=== PATIENT | male | born 1965 | race Two or more races ===

== ENCOUNTER 2023-09-01 20:16 | Inpatient (IN) | payer MEDICAID, OTHER ==
[2023-09-01] VITALS (8 sets, daily range): BP systolic 129–206; BP diastolic 50–125; PULSE 75–101; RESP 18–25; TEMP 97.4; O2SAT 95–99
[~2023-09-01] VITALS: Ht 170.2 cm; Wt 81.1 kg
[2023-09-01] MEDS: NOREPINEPHRINE 8 MG/250ML KIT 250 ML IV SCH
[2023-09-01] MEDS: HEPARIN SODIUM (PORCINE) 5000 UNITS/ML 1ML VIAL IV ONE (20:30)
[2023-09-01] MEDS: PROPOFOL 100 ML IV SCH (20:30)
[2023-09-01] MEDS: PROPOFOL 100 ML IV ONE (20:34)
[2023-09-01] MEDS: fentaNYL Drip 2500mCg/250mlNS 250 ML IV SCH (20:45)
[2023-09-01] MEDS: HEPARIN SODIUM (PORCINE) 5000 UNITS/ML 1ML VIAL ONE ×2 (20:50→21:19)
[2023-09-01 20:59] LABS: Basophils # (auto) 0.1 10 ^3/uL (0-0.2); Basophils % (auto) 0.6 % (0.0-2.0); Eosinophils # (auto) 0.4 10 ^3/uL (0-0.8); Eosinophils % (auto) 1.9 % (0.0-7.0); Hematocrit 48.3 % (41.0-53.0); Hemoglobin 15.9 g/dL (13.5-17.5); Lymphocytes # (auto) 6.9 10 ^3/uL (0.4-5.4); Lymphocytes % (auto) 37.5 % (10.0-50.0); Mean Corpuscular Hemoglobin 31.2 pg (28.0-32.0); Mean Corpuscular Volume 94.7 fL (80.0-100.0); Monocytes # (auto) 1.6 10 ^3/uL (0-1.3); Monocytes % (auto) 8.5 % (0.0-12.0); Neutrophils # (auto) 9.5 10 ^3/uL (1.6-8.6); Neutrophils % (auto) 51.5 % (37.0-80.0); Nucleated Red Blood Cells % 0.1 %; Red Cell Distribution Width 14.5 % (11.8-14.3); White Blood Cell 18.5 10^3/uL (4.4-10.8)
[2023-09-01] MEDS: VERAPAMIL 2.5MG/ML INJ 2ML VIAL IV ONE (21:02)
[2023-09-01] MEDS: MIDAZOLAM HCL 2MG/2ML 2ml VIAL (1mg/ml) ONE (21:02)
[2023-09-01] MEDS: ANGIOMAX 250 MG VIAL IV ONE (21:02)
[2023-09-01] MEDS: fentaNYL CITRATE 100 MCG/2 ML VL ONE (21:02)
[2023-09-01] MEDS: LIDOCAINE 2%HCL (LOCAL ANESTH.) INJ 20ML MDV ONE (21:02)
[2023-09-01] MEDS: SODIUM CHL 0.9% 50 ML ONE (21:03)
[2023-09-01] MEDS: IODIXANOL 320MG/ML 100ML BTL IV ONE (21:03)
[2023-09-01] MEDS: HEPARIN IN NS 1000Units/500mL 1,500 ML ONE (21:03)
[2023-09-01] MEDS: fentaNYL Drip 2500mCg/250mlNS 250 ML IV ONE (21:06)
[2023-09-01] MEDS: ROCURONIUM 10MG/ML 10ML VIAL IV ONE ×2 (21:08→21:09)
[2023-09-01 21:14] LABS: Chloride 109 mmol/L (98-107); Potassium 3.7 mmol/L (3.5-5.1); Sodium 140 mmol/L (136-145)
[2023-09-01 21:15] LABS: Anion Gap 16 (5-15); Calcium 9.1 mg/dL (8.7-10.4); Carbon Dioxide 15 mmol/L (20-30)
[2023-09-01] MEDS: METOPROLOL TARTRATE 1MG/1ML-5ML VIAL IV ONE (21:17)
[2023-09-01 21:20] LABS: BUN/Creatinine Ratio 18.3 (10.0-20.0); Blood Urea Nitrogen 19 mg/dL (9-23); Glucose 164 mg/dL (74-106)
[2023-09-01 21:20] LABS: Amphetamine Screen, Urine Pos (NEGATIVE); Barbiturate Scree,Urine Neg (NEGATIVE); Benzodiazephine Screen, Urine Neg (NEGATIVE); Cannabinoid Screen, Urine Neg (NEGATIVE); Cocaine Screen, Urine Neg (NEGATIVE); Opiate Scree,Urine Neg (NEGATIVE); Phencyclidine Screen, Urine Neg (NEGATIVE)
[2023-09-01 21:24] LABS: Partial Thromboplastin Time 22.2 SEC (24.5-34.5); Prothrombin Time 10.6 sec (9.3-11.8)
[2023-09-01] MEDS: EPINEPHrine HCL 1 MG/10 ML SYRG ONE (21:36)
[2023-09-01] MEDS: ATROPINE SULF 1 MG/10ml SYR ONE (21:36)
[2023-09-01] MEDS: DOPamine 1600MCG/ML D5W 250 ML IV ONE (21:59)
[2023-09-01] MEDS: EPINEPHrine HCL 1 MG/1 ML AMP ONE (22:07)
[2023-09-01] MEDS: NOREPINEPHRINE 8 MG/250ML KIT 250 ML IV ONE (22:08)
[2023-09-01] MEDS: SODIUM BICARB 8.4% 50Meq/50ml SYR Vial IV ONE (22:16)
[2023-09-01] MEDS: CLOPIDOGREL BISULFATE 75 MG TAB ONE ×2 (22:24→22:25)
[2023-09-01] MEDS: ASPirin 325 MG TAB ONE (22:28)
[2023-09-01 22:41] LABS: Base Excess -2.8 mmol/L (-2.0-2.0)
[2023-09-01] MEDS: VANCOMYCIN 1GM/200ML 200 ML IV ONE (22:41)
[2023-09-01 22:44] LABS: Base Excess -4.9 mmol/L (-2.0-2.0)
[2023-09-01] MEDS ORDERED: MORPHINE SULFATE INJ 2 MG/ml SYRG IV PRN (23:00)
[2023-09-01] MEDS ORDERED: NITROGLYCERIN 0.4 MG SL TAB SL PRN (23:00)
[2023-09-01] MEDS: MIDAZOLAM DRIP 50 mg/50mL 50 ML IV SCH (23:30)
[2023-09-02] VITALS (106 sets, daily range): BP systolic 87–170; BP diastolic 39–88; PULSE 67–93; RESP 8–39; TEMP 96.9–101.7; O2SAT 92–100
[2023-09-02] MEDS: DOPamine 1600MCG/ML D5W 250 ML IV SCH ×2 (02:11→10:00)
[2023-09-02] MEDS: CLOPIDOGREL BISULFATE 75 MG TAB PO ONE (10:00)
[2023-09-02] MEDS ORDERED: NICOTINE 14 MG/24HR TOPICAL PATCH TD SCH (10:00)
[2023-09-02] MEDS: ASPirin 81 mg TAB PO ONE (10:00)
[2023-09-02] MEDS: CLOPIDOGREL BISULFATE 75 MG TAB PO SCH (10:58)
[2023-09-02] MEDS: cefTRIAXone 1GM/50ML D5W 50 ML IV ONE (10:58)
[2023-09-02] MEDS: ASPirin 81 mg TAB PO SCH (10:58)
[2023-09-02 11:00] LABS: Basophils # (auto) 0.1 10 ^3/uL (0-0.2); Basophils % (auto) 0.4 % (0.0-2.0); Eosinophils # (auto) 0.2 10 ^3/uL (0-0.8); Eosinophils % (auto) 1.4 % (0.0-7.0); Hematocrit 48.2 % (41.0-53.0); Hemoglobin 16.3 g/dL (13.5-17.5); Lymphocytes # (auto) 2.2 10 ^3/uL (0.4-5.4); Mean Corpuscular Hemoglobin 31.5 pg (28.0-32.0); Mean Corpuscular Hgb Conc. 33.9 g/dL (32.0-36.0); Mean Corpuscular Volume 92.9 fL (80.0-100.0); Monocytes # (auto) 1.9 10 ^3/uL (0-1.3); Neutrophils % (auto) 70.2 % (37.0-80.0); Red Blood Cells 5.19 10^6/uL (4.5-5.90); White Blood Cell 14.3 10^3/uL (4.4-10.8)
[2023-09-02 11:15] LABS: Alanine Aminotransferase 132 U/L (7-40); Albumin 3.8 g/dL (3.2-4.8); Alkaline Phosphatase 165 U/L (46-116); Anion Gap 7 (5-15); Aspartate Aminotransferase 525 U/L (13-40); BUN/Creatinine Ratio 21.8 (10.0-20.0); Blood Urea Nitrogen 24 mg/dL (9-23); Calcium 8.7 mg/dL (8.5-10.1); Carbon Dioxide 25 mmol/L (20-30); Chloride 108 mmol/L (98-107); Cholesterol 164 mg/dL (< 200); Glucose 151 mg/dL (74-106); LDL Cholesterol 109 mg/dL (< 100); Potassium 3.5 mmol/L (3.5-5.1); Sodium 140 mmol/L (136-145); Triglycerides 207 mg/dL (< 150)
[2023-09-02 11:16] LABS: Bilirubin, Total 1.1 mg/dL (0.2-1.0); HDL Cholesterol 36 mg/dL (40-59); Total Protein 5.9 g/dL (5.7-8.2)
[2023-09-02 11:27] LABS: Urine Bacteria None Seen /hpf (None Seen)
[2023-09-02 11:44] LABS: Urine Blood 1+ /uL (Negative); Urine Clarity Clear (Clear); Urine Color Yellow (Yellow); Urine Mucus FEW (None Seen); Urine Protein, UAD 1+ (Negative); Urine Urobilinogen Normal (Negative); Urine WBC 2 /hpf (0 - 3); Urine pH 5.5 (5.0-9.0)
[2023-09-02 11:51] LABS: Urine Specific Gravity 1.035 (1.001-1.035)
[2023-09-02] MEDS: ENOXAPARIN SOD 40 MG/0.4 ML SYRINGE SC SCH (12:39)
[2023-09-02] MEDS: ACETAMINOPHEN 650 mg PER 20.3 mL UD PO ONE (12:40)
[2023-09-02 13:27] LABS: Lactic Acid w/Reflex 2.1 mmol/L (0.4-2.0)
[2023-09-02] MEDS ORDERED: VANCOMYCIN PER PHARMACY 0 MG IV SCH (16:00)
[2023-09-02] MEDS: VANCOMYCIN 1GM/200ML 200 ML IV SCH (17:41)
[2023-09-02] MEDS: PIPERACILLIN-TAZOB 3.375GM 100 ML IV ONE (17:43)
[2023-09-02] MEDS ORDERED: PIPERACILLIN-TAZOB 3.375GM 100 ML IV SCH (18:00)
[2023-09-02] MEDS: ACETAMINOPHEN 650 mg PER 20.3 mL UD PO PRN (18:24)
[2023-09-02] MEDS: ATORVASTATIN 20 MG TAB PO SCH (21:22)
[2023-09-03] VITALS (107 sets, daily range): BP systolic 88–175; BP diastolic 47–110; PULSE 64–104; RESP 9–42; TEMP 100.2–101.1; O2SAT 96–100
[2023-09-03] MEDS: PIPERACILLIN-TAZOB 3.375GM 100 ML IV SCH (01:55)
[2023-09-03 04:04] LABS: Basophils # (auto) 0.1 10 ^3/uL (0-0.2); Basophils % (auto) 0.9 % (0.0-2.0); Eosinophils # (auto) 0.1 10 ^3/uL (0-0.8); Hematocrit 41.4 % (41.0-53.0); Hemoglobin 14.1 g/dL (13.5-17.5); Mean Corpuscular Hemoglobin 31.7 pg (28.0-32.0); Mean Corpuscular Hgb Conc. 34.1 g/dL (32.0-36.0); Monocytes # (auto) 1.1 10 ^3/uL (0-1.3); Monocytes % (auto) 9.1 % (0.0-12.0); Neutrophils # (auto) 8.5 10 ^3/uL (1.6-8.6); Red Blood Cells 4.46 10^6/uL (4.5-5.90); White Blood Cell 11.8 10^3/uL (4.4-10.8)
[2023-09-03 04:21] LABS: Alanine Aminotransferase 109 U/L (7-40); Albumin 3.3 g/dL (3.2-4.8); Alkaline Phosphatase 136 U/L (46-116); Anion Gap 6 (5-15); Aspartate Aminotransferase 377 U/L (13-40); BUN/Creatinine Ratio 22.1 (10.0-20.0); Bilirubin, Total 1.5 mg/dL (0.2-1.0); Blood Urea Nitrogen 19 mg/dL (9-23); Calcium 8.2 mg/dL (8.7-10.4); Carbon Dioxide 26 mmol/L (20-30); Chloride 106 mmol/L (98-107); Glucose 129 mg/dL (74-106); Magnesium 1.8 mg/dL (1.6-2.6); Potassium 3.7 mmol/L (3.5-5.1); Sodium 138 mmol/L (136-145); Total Protein 5.7 g/dL (5.7-8.2)
[2023-09-03 06:50] LABS: Base Excess -0.2 mmol/L (-2.0-2.0)
[2023-09-03] MEDS ORDERED: cefTRIAXone 1GM/50ML D5W 50 ML IV SCH (09:00)
[2023-09-03] MEDS: POTASSIUM CHL 20MEQ/100ML 100 ML IV ONE (10:01)
[2023-09-03] MEDS: MAGNESIUM SULFATE 1GM/100ML 100 ML IV ONE (10:01)
[2023-09-03] MEDS: FUROSEMIDE 20 MG/2 ML VIAL IV ONE (21:54)
[2023-09-04] VITALS (82 sets, daily range): BP systolic 79–175; BP diastolic 32–106; PULSE 53–101; RESP 8–32; TEMP 97.4–100.8; O2SAT 86–100
[2023-09-04 03:34] LABS: Basophils # (auto) 0 10 ^3/uL (0-0.2); Basophils % (auto) 0.4 % (0.0-2.0); Eosinophils # (auto) 0 10 ^3/uL (0-0.8); Eosinophils % (auto) 0.3 % (0.0-7.0); Hematocrit 38.4 % (41.0-53.0); Hemoglobin 13.2 g/dL (13.5-17.5); Lymphocytes % (auto) 8.1 % (10.0-50.0); Mean Corpuscular Hemoglobin 32.3 pg (28.0-32.0); Mean Corpuscular Hgb Conc. 34.5 g/dL (32.0-36.0); Mean Corpuscular Volume 93.6 fL (80.0-100.0); Monocytes % (auto) 8.2 % (0.0-12.0); Neutrophils # (auto) 10.5 10 ^3/uL (1.6-8.6); White Blood Cell 12.7 10^3/uL (4.4-10.8)
[2023-09-04 03:53] LABS: Alanine Aminotransferase 83 U/L (7-40); Albumin 3.5 g/dL (3.2-4.8); Alkaline Phosphatase 147 U/L (46-116); Anion Gap 5 (5-15); Aspartate Aminotransferase 229 U/L (13-40); BUN/Creatinine Ratio 18.4 (10.0-20.0); Blood Urea Nitrogen 19 mg/dL (9-23); Calcium 8.5 mg/dL (8.7-10.4); Carbon Dioxide 26 mmol/L (20-30); Chloride 105 mmol/L (98-107); Glucose 120 mg/dL (74-106); Potassium 3.8 mmol/L (3.5-5.1); Sodium 136 mmol/L (136-145)
[2023-09-04 03:54] LABS: Bilirubin, Total 1.2 mg/dL (0.2-1.0)
[2023-09-04 07:02] LABS: Base Excess -2.1 mmol/L (-2.0-2.0)
[2023-09-04] MEDS: FUROSEMIDE 20 MG/2 ML VIAL IV SCH (09:16)
[2023-09-04] MEDS: SPIRONOLACTONE 25 MG TAB PO SCH (10:00)
[2023-09-04] MEDS ORDERED: SACUBITRIL-VALSARTAN 24mg/26mg TAB PO SCH (10:00)
[2023-09-04] MEDS ORDERED: CARVEDILOL 3.125 MG TAB PO SCH (10:00)
[2023-09-04] MEDS: EMPAGLIFLOZIN 10 MG TAB PO SCH (10:00)
[2023-09-04 10:21] LABS: Base Excess -4.3 mmol/L (-2.0-2.0)
[2023-09-04] MEDS: FUROSEMIDE 20 MG/2 ML VIAL IV ONE (10:44)
[2023-09-04] MEDS: LORazepam 2MG/ML-1ML VIAL IV PRN ×2 (16:07→18:30)
[2023-09-04] MEDS: LORazepam 2MG/ML-1ML VIAL IM ONE (16:55)
[2023-09-04] MEDS ORDERED: LORazepam 2MG/ML-1ML VIAL IV PRN (18:00)
[2023-09-05] VITALS (30 sets, daily range): BP systolic 125–183; BP diastolic 61–101; PULSE 77–105; RESP 12–31; TEMP 98.2–100.6; O2SAT 62–100
[2023-09-05 04:36] LABS: Basophils # (auto) 0 10 ^3/uL (0-0.2); Basophils % (auto) 0.4 % (0.0-2.0); Eosinophils # (auto) 0.1 10 ^3/uL (0-0.8); Eosinophils % (auto) 0.4 % (0.0-7.0); Hematocrit 36.2 % (41.0-53.0); Hemoglobin 12.2 g/dL (13.5-17.5); Lymphocytes # (auto) 1.5 10 ^3/uL (0.4-5.4); Mean Corpuscular Hemoglobin 31.7 pg (28.0-32.0); Mean Corpuscular Hgb Conc. 33.7 g/dL (32.0-36.0); Mean Corpuscular Volume 94.2 fL (80.0-100.0); Monocytes # (auto) 1.3 10 ^3/uL (0-1.3); Monocytes % (auto) 9.9 % (0.0-12.0); Neutrophils # (auto) 10.3 10 ^3/uL (1.6-8.6); Neutrophils % (auto) 78.3 % (37.0-80.0); Red Blood Cells 3.85 10^6/uL (4.5-5.90); Red Cell Distribution Width 13.8 % (11.8-14.3); White Blood Cell 13.2 10^3/uL (4.4-10.8)
[2023-09-05 04:50] LABS: Alanine Aminotransferase 71 U/L (7-40); Albumin 3.7 g/dL (3.2-4.8); Alkaline Phosphatase 156 U/L (46-116); Anion Gap 11 (5-15); Aspartate Aminotransferase 150 U/L (13-40); BUN/Creatinine Ratio 15.9 (10.0-20.0); Bilirubin, Total 1.4 mg/dL (0.2-1.0); Blood Urea Nitrogen 40 mg/dL (9-23); Calcium 8.8 mg/dL (8.7-10.4); Carbon Dioxide 21 mmol/L (20-30); Chloride 107 mmol/L (98-107); Glucose 103 mg/dL (74-106); Magnesium 2.2 mg/dL (1.6-2.6); Potassium 3.5 mmol/L (3.5-5.1); Sodium 139 mmol/L (136-145); Total Protein 6.4 g/dL (5.7-8.2)
[2023-09-05] MEDS: HALOPERIDOL LACTATE 5 MG/ML INJ VIAL IM ONE ×2 (08:47→13:10)
[2023-09-05] MEDS: CLOPIDOGREL BISULFATE 75 MG TAB PO ONE (10:19)
[2023-09-05] MEDS: EMPAGLIFLOZIN 10 MG TAB PO ONE (10:19)
[2023-09-05] MEDS ORDERED: HALOPERIDOL 1 MG TAB PO PRN (11:15)
[2023-09-05] MEDS: HALOPERIDOL LACTATE 5 MG/ML INJ VIAL ONE (13:09)
[2023-09-05] MEDS ORDERED: THIAMINE 100mg/ml INJ (200mg/2ml VIAL) IV ONE (14:15)
[2023-09-05] MEDS: SODIUM CHLORIDE 0.9% 1,000 ML IV SCH (14:26)
[2023-09-05] MEDS: FOLIC ACID 1 MG, THIAMINE INJ 100 MG in D5W 5% 50 ML INJ ONE (17:01)
[2023-09-05] MEDS: hydrALAZINE HCL 20 MG/ML VL IV PRN (18:18)
[2023-09-06] VITALS (23 sets, daily range): BP systolic 132–178; BP diastolic 78–99; PULSE 73–85; RESP 18–28; TEMP 98.5–100.5; O2SAT 94–99
[2023-09-06 06:03] LABS: Basophils # (auto) 0.1 10 ^3/uL (0-0.2); Basophils % (auto) 0.7 % (0.0-2.0); Eosinophils # (auto) 0.1 10 ^3/uL (0-0.8); Eosinophils % (auto) 0.8 % (0.0-7.0); Hematocrit 41.5 % (41.0-53.0); Hemoglobin 14.2 g/dL (13.5-17.5); Lymphocytes # (auto) 1.3 10 ^3/uL (0.4-5.4); Lymphocytes % (auto) 13.5 % (10.0-50.0); Mean Corpuscular Hemoglobin 31.8 pg (28.0-32.0); Mean Corpuscular Hgb Conc. 34.2 g/dL (32.0-36.0); Monocytes # (auto) 0.8 10 ^3/uL (0-1.3); Monocytes % (auto) 8.1 % (0.0-12.0); Neutrophils # (auto) 7.2 10 ^3/uL (1.6-8.6); Neutrophils % (auto) 76.9 % (37.0-80.0); Red Blood Cells 4.47 10^6/uL (4.5-5.90); Red Cell Distribution Width 13.6 % (11.8-14.3); White Blood Cell 9.4 10^3/uL (4.4-10.8)
[2023-09-06 06:26] LABS: Alanine Aminotransferase 68 U/L (7-40); Alkaline Phosphatase 234 U/L (46-116); Anion Gap 13 (5-15); Aspartate Aminotransferase 115 U/L (13-40); BUN/Creatinine Ratio 18.4 (10.0-20.0); Blood Urea Nitrogen 36 mg/dL (9-23); Calcium 9.3 mg/dL (8.5-10.1); Carbon Dioxide 23 mmol/L (20-30); Chloride 113 mmol/L (98-107); Glucose 98 mg/dL (74-106); Potassium 2.9 mmol/L (3.5-5.1)
[2023-09-06 06:27] LABS: Total Protein 6.8 g/dL (5.7-8.2)
[2023-09-06 06:29] LABS: Sodium 149 mmol/L (136-145)
[2023-09-06 08:24] LABS: Urine Bacteria FEW /hpf (None Seen); Urine Blood 3+ /uL (Negative); Urine Clarity Turbid (Clear); Urine Color Yellow (Yellow); Urine Mucus FEW (None Seen); Urine Protein, UAD 3+ (Negative); Urine Specific Gravity 1.014 (1.001-1.035); Urine Urobilinogen Normal (Negative); Urine WBC 19 /hpf (0 - 3)
[2023-09-06] MEDS: POTASSIUM EFFERVESENT TAB 25 MEQ PO ONE (09:42)
[2023-09-06] MEDS: D5W/SOD CHL 0.45% 1,000 ML IV SCH ×2 (09:42→21:15)
[2023-09-06] MEDS: POTASSIUM CHL 20MEQ/100ML 100 ML IV SCH (09:43)
[2023-09-06] MEDS: EMPAGLIFLOZIN 10 MG TAB PO SCH (09:45)
[2023-09-06] MEDS: ENOXAPARIN SOD 40 MG/0.4 ML SYRINGE SC SCH (09:45)
[2023-09-06] MEDS: ASPirin 81 mg TAB PO SCH (09:45)
[2023-09-06] MEDS: CLOPIDOGREL BISULFATE 75 MG TAB PO SCH (09:47)
[2023-09-06] MEDS: FOLIC ACID 1 MG, THIAMINE INJ 100 MG in D5W 5% 50 ML INJ SCH (09:48)
[2023-09-06] MEDS ORDERED: THIAMINE 100mg/ml INJ (200mg/2ml VIAL) IV SCH (10:00)
[2023-09-06] MEDS: cefTRIAXone 1GM/50ML D5W 50 ML IV ONE (11:15)
[2023-09-06] MEDS ORDERED: CLINIMIX PER PHARMACY 0 ML IV SCH (19:45)
[2023-09-06] MEDS: AMINO ACID INFUSION IN D10W 1,000 ML IV ONE (21:15)
[2023-09-06] MEDS: CARVEDILOL 3.125 MG TAB PO SCH (22:15)
[2023-09-07] VITALS (8 sets, daily range): BP systolic 128–158; BP diastolic 86–101; PULSE 62–109; RESP 0–22; TEMP 97.5–99.2; O2SAT 90–98
[2023-09-07 06:05] LABS: Basophils # (auto) 0.1 10 ^3/uL (0-0.2); Basophils % (auto) 0.7 % (0.0-2.0); Eosinophils # (auto) 0.2 10 ^3/uL (0-0.8); Eosinophils % (auto) 1.8 % (0.0-7.0); Hematocrit 42.2 % (41.0-53.0); Hemoglobin 14.8 g/dL (13.5-17.5); Lymphocytes # (auto) 1.6 10 ^3/uL (0.4-5.4); Lymphocytes % (auto) 16.4 % (10.0-50.0); Mean Corpuscular Hemoglobin 32.3 pg (28.0-32.0); Mean Corpuscular Volume 92.2 fL (80.0-100.0); Monocytes # (auto) 1.1 10 ^3/uL (0-1.3); Monocytes % (auto) 10.6 % (0.0-12.0); Neutrophils % (auto) 70.5 % (37.0-80.0); Red Blood Cells 4.57 10^6/uL (4.5-5.90); Red Cell Distribution Width 13.5 % (11.8-14.3)
[2023-09-07] MEDS ORDERED: ONDANSETRON HCL 4 MG/2 ML VIAL IV PRN (06:15)
[2023-09-07 06:27] LABS: Alanine Aminotransferase 57 U/L (7-40); Alkaline Phosphatase 207 U/L (46-116); Anion Gap 10 (5-15); BUN/Creatinine Ratio 24.2 (10.0-20.0); Blood Urea Nitrogen 30 mg/dL (9-23); Calcium 8.9 mg/dL (8.5-10.1); Carbon Dioxide 25 mmol/L (20-30); Chloride 115 mmol/L (98-107); Glucose 129 mg/dL (74-106); Magnesium 2.3 mg/dL (1.6-2.6); Potassium 3.1 mmol/L (3.5-5.1); Sodium 150 mmol/L (136-145); Triglycerides 232 mg/dL (< 150)
[2023-09-07 06:28] LABS: Albumin 3.9 g/dL (3.2-4.8); Aspartate Aminotransferase 71 U/L (13-40); Bilirubin, Total 1.1 mg/dL (0.2-1.0); Phosphorus 2.7 mg/dL (2.4-5.1); Total Protein 6.6 g/dL (5.7-8.2)
[2023-09-07] MEDS: HALOPERIDOL LACTATE 5 MG/ML INJ VIAL IV PRN (07:02)
[2023-09-07] MEDS: InsuLIN REG 1unit/0.01ml Soln (100units/ml) SC SCH (12:00)
[2023-09-07] MEDS ORDERED: DEXTROSE (50%) 50ML SYRG IV SCH (12:00)
[2023-09-07] MEDS: ACCU-CHEK COMFORT CURVE STRIP VI SCH (12:00)
[2023-09-07] MEDS: cefTRIAXone 1GM/50ML D5W 50 ML IV SCH (12:47)
[2023-09-07] MEDS: POTASSIUM PHOSPHATE 44 MEQ in D5W 5% 250 ML IV ONE (18:41)
[2023-09-07] MEDS: AMINO ACID INFUSION IN D10W 1,000 ML IV SCH (20:49)
[2023-09-07] MEDS: SACUBITRIL-VALSARTAN 24mg/26mg TAB PO SCH (21:17)
[2023-09-08] VITALS (8 sets, daily range): BP systolic 114–159; BP diastolic 86–103; PULSE 58–80; RESP 0–20; TEMP 98–98.8; O2SAT 92–100
[2023-09-08 06:07] LABS: Basophils # (auto) 0.1 10 ^3/uL (0-0.2); Basophils % (auto) 0.7 % (0.0-2.0); Eosinophils # (auto) 0.4 10 ^3/uL (0-0.8); Eosinophils % (auto) 3.2 % (0.0-7.0); Hematocrit 44.4 % (41.0-53.0); Hemoglobin 15.2 g/dL (13.5-17.5); Lymphocytes # (auto) 2.9 10 ^3/uL (0.4-5.4); Lymphocytes % (auto) 21.5 % (10.0-50.0); Mean Corpuscular Hgb Conc. 34.2 g/dL (32.0-36.0); Mean Corpuscular Volume 90.6 fL (80.0-100.0); Monocytes # (auto) 1.3 10 ^3/uL (0-1.3); Monocytes % (auto) 9.5 % (0.0-12.0); Neutrophils # (auto) 8.8 10 ^3/uL (1.6-8.6); Neutrophils % (auto) 65.1 % (37.0-80.0); Nucleated Red Blood Cells % 0.1 %; Red Cell Distribution Width 13.4 % (11.8-14.3); White Blood Cell 13.6 10^3/uL (4.4-10.8)
[2023-09-08 06:15] LABS: Alanine Aminotransferase 59 U/L (7-40); Albumin 3.5 g/dL (3.2-4.8); Alkaline Phosphatase 171 U/L (46-116); Anion Gap 5 (5-15); Aspartate Aminotransferase 66 U/L (13-40); BUN/Creatinine Ratio 25.3 (10.0-20.0); Blood Urea Nitrogen 24 mg/dL (9-23); Calcium 8.8 mg/dL (8.7-10.4); Carbon Dioxide 23 mmol/L (20-30); Chloride 110 mmol/L (98-107); Glucose 119 mg/dL (74-106); Magnesium 1.7 mg/dL (1.6-2.6); Potassium 3.8 mmol/L (3.5-5.1); Sodium 138 mmol/L (136-145)
[2023-09-08 06:16] LABS: Bilirubin, Total 0.6 mg/dL (0.2-1.0); Phosphorus 4.7 mg/dL (2.4-5.1); Total Protein 6.2 g/dL (5.7-8.2)
[2023-09-08] MEDS: SPIRONOLACTONE 25 MG TAB PO SCH (09:45)
[2023-09-09 01:00] VITALS: BP 115/73; PULSE 70; RESP 20; TEMP 98.7; O2SAT 95
[2023-09-09 05:00] VITALS: BP 120/75; PULSE 69; RESP 20; TEMP 98.3; O2SAT 97
[2023-09-09 06:36] LABS: Potassium 3.8 mmol/L (3.5-5.1)
[2023-09-09 06:38] LABS: Basophils # (auto) 0.1 10 ^3/uL (0-0.2); Eosinophils # (auto) 0.4 10 ^3/uL (0-0.8); Eosinophils % (auto) 3.5 % (0.0-7.0); Hematocrit 44.9 % (41.0-53.0); Hemoglobin 15.7 g/dL (13.5-17.5); Lymphocytes % (auto) 23.1 % (10.0-50.0); Mean Corpuscular Hemoglobin 31.5 pg (28.0-32.0); Mean Corpuscular Hgb Conc. 35.1 g/dL (32.0-36.0); Monocytes # (auto) 1.2 10 ^3/uL (0-1.3); Monocytes % (auto) 9.4 % (0.0-12.0); Neutrophils # (auto) 8.2 10 ^3/uL (1.6-8.6); Nucleated Red Blood Cells % 0.1 %; Red Blood Cells 4.99 10^6/uL (4.5-5.90); Red Cell Distribution Width 13.2 % (11.8-14.3)
[2023-09-09 06:42] LABS: BUN/Creatinine Ratio 21.7 (10.0-20.0); Magnesium 1.8 mg/dL (1.6-2.6)
[2023-09-09 06:43] LABS: Albumin 3.6 g/dL (3.2-4.8)
[2023-09-09 06:44] LABS: Phosphorus 3.8 mg/dL (2.4-5.1)
== END 2023-09-09 08:19 | disposition left against medical advice (07) | DRG 174 ==
LOC: EDBD 20:16 → ER 20:16 → ICU WEST 23:45 → DOU IN ICU 09-05 10:33 → TELE-EAST 09-06 11:31
PROVIDERS: ADMIT Internal Medicine Pulmonary Disease; ATTEND Internal Medicine Pulmonary Disease
PROC: 027035Z Dilation of Coronary Artery, One Artery with Two Drug-eluting Intraluminal Devices, Percutaneous Approach (ICD-10-PCS; principal; 2023-09-01)
PROC: 4A023N7 Measurement of Cardiac Sampling and Pressure, Left Heart, Percutaneous Approach (ICD-10-PCS; 2023-09-01)
PROC: B2111ZZ Fluoroscopy of Multiple Coronary Arteries using Low Osmolar Contrast (ICD-10-PCS; 2023-09-01)
PROC: B2151ZZ Fluoroscopy of Left Heart using Low Osmolar Contrast (ICD-10-PCS; 2023-09-01)
PROC: 0BH17EZ Insertion of Endotracheal Airway into Trachea, Via Natural or Artificial Opening (ICD-10-PCS; 2023-09-01)
PROC: 5A1945Z Respiratory Ventilation, 24-96 Consecutive Hours (ICD-10-PCS; 2023-09-01)
PROC: 06HY33Z Insertion of Infusion Device into Lower Vein, Percutaneous Approach (ICD-10-PCS; 2023-09-01)
PROC: 05HB33Z Insertion of Infusion Device into Right Basilic Vein, Percutaneous Approach (ICD-10-PCS; 2023-09-04)
PROC: B54MZZA Ultrasonography of Right Upper Extremity Veins, Guidance (ICD-10-PCS; 2023-09-04)
PROC: 0BP1XDZ Removal of Intraluminal Device from Trachea, External Approach (ICD-10-PCS; 2023-09-05)
DX: I21.19 ST elevation (STEMI) myocardial infarction involving other coronary artery of inferior wall (principal); I46.9 Cardiac arrest, cause unspecified; R57.0 Cardiogenic shock; T82.855A Stenosis of coronary artery stent, initial encounter; I11.0 Hypertensive heart disease with heart failure; E78.5 Hyperlipidemia, unspecified; F15.10 Other stimulant abuse, uncomplicated; I25.10 Atherosclerotic heart disease of native coronary artery without angina pectoris; E66.9 Obesity, unspecified; Z68.28 Body mass index [BMI] 28.0-28.9, adult; Z53.29 Procedure and treatment not carried out because of patient's decision for other reasons; I47.20 Ventricular tachycardia, unspecified; R74.01 Elevation of levels of liver transaminase levels; B19.20 Unspecified viral hepatitis C without hepatic coma; K80.20 Calculus of gallbladder without cholecystitis without obstruction; N17.9 Acute kidney failure, unspecified; Y83.8 Other surgical procedures as the cause of abnormal reaction of the patient, or of later complication, without mention of misadventure at the time of the procedure; Z91.199 Patient's noncompliance with other medical treatment and regimen due to unspecified reason; Z79.899 Other long term (current) drug therapy; Y92.89 Other specified places as the place of occurrence of the external cause; R65.11 Systemic inflammatory response syndrome (SIRS) of non-infectious origin with acute organ dysfunction; I50.31 Acute diastolic (congestive) heart failure
CPT/HCPCS: 31500; 36415; 36600; 70450; 71045; 76705; 80048; 80053; 80061; 80069; 80202; 80307; 81001; 82805; 82962; 83605; 83735; 83880; 84100; 84443; 84478; 84484; 85025; 85610; 85730; 86703; 86803; 86850; 86900; 86901; 87040; 87070; 87081; 87086; 87205; 87340; 92941; 93005; 93306; 93458; 94002; 94003; 99152; 99291; C1874; G0378; J0171; J1815; J2250; J2543; J2704; J3480; J7060; Q9967

== ENCOUNTER 2023-09-09 08:50 | Emergency (ER) | payer MEDICAID ==
[~2023-09-09] VITALS: Ht 175.3 cm; Wt 86.0 kg
[2023-09-09 09:10] VITALS: PULSE 77; RESP 14; TEMP 97.8; O2SAT 98
[2023-09-09] MEDS: SODIUM CHLORIDE 0.9% 500 ML IV ONE ×2 (10:09→10:35)
[2023-09-09] MEDS: MORPHINE SULFATE INJ 2 MG/ml SYRG IV ONE (11:18)
[2023-09-09] MEDS: ONDANSETRON HCL 4 MG/2 ML VIAL IV ONE (11:19)
[2023-09-09 12:03] VITALS: BP 125/86; PULSE 73; RESP 21; O2SAT 95
[2023-09-09 12:09] LABS: Basophils # (auto) 0.1 10 ^3/uL (0-0.2); Basophils % (auto) 0.9 % (0.0-2.0); Eosinophils # (auto) 0.4 10 ^3/uL (0-0.8); Eosinophils % (auto) 3.5 % (0.0-7.0); Hematocrit 41.3 % (41.0-53.0); Hemoglobin 14.3 g/dL (13.5-17.5); Lymphocytes # (auto) 2.5 10 ^3/uL (0.4-5.4); Lymphocytes % (auto) 20.7 % (10.0-50.0); Mean Corpuscular Hemoglobin 31.3 pg (28.0-32.0); Mean Corpuscular Hgb Conc. 34.5 g/dL (32.0-36.0); Mean Corpuscular Volume 90.5 fL (80.0-100.0); Monocytes # (auto) 1.2 10 ^3/uL (0-1.3); Monocytes % (auto) 10.3 % (0.0-12.0); Neutrophils # (auto) 7.8 10 ^3/uL (1.6-8.6); Neutrophils % (auto) 64.6 % (37.0-80.0); Red Blood Cells 4.57 10^6/uL (4.5-5.90); Red Cell Distribution Width 13.2 % (11.8-14.3); White Blood Cell 12.1 10^3/uL (4.4-10.8)
[2023-09-09] MEDS: SODIUM CHLORIDE 0.9% 1,000 ML IV ONE (12:10)
[2023-09-09 12:16] LABS: Chloride 112 mmol/L (98-107); Sodium 140 mmol/L (136-145)
[2023-09-09 12:17] LABS: Anion Gap 5 (5-15); Carbon Dioxide 23 mmol/L (20-30)
[2023-09-09 12:18] LABS: Calcium 8.4 mg/dL (8.5-10.1)
[2023-09-09 12:23] LABS: Glucose 117 mg/dL (74-106)
[2023-09-09 12:24] LABS: BUN/Creatinine Ratio 26.4 (10.0-20.0); Blood Urea Nitrogen 24 mg/dL (9-23)
== END 2023-09-09 13:16 | disposition home or self-care (01) ==
LOC: ER 08:50
DX: R58 Hemorrhage, not elsewhere classified (principal); I10 Essential (primary) hypertension; I25.2 Old myocardial infarction; Z98.61 Coronary angioplasty status
CPT/HCPCS: 36415; 80048; 85025; 96361; 96374; 96375; 99285; J2270; J2405; J7030; J7040